=== PATIENT | male | born 1930 | race Caucasian/White ===

== ENCOUNTER 2021-08-28 09:49 | Outpatient (CLI) | payer MEDICARE, BC ==
[2021-08-28] MEDS ORDERED: Iopamidol-370 76% 500 ML 1 ML ONE (10:14)
== END 2021-08-28 09:50 | disposition home or self-care (01) ==
LOC: BICRAD 09:49 → BICCT 09:50
PROVIDERS: ATTEND Allergy & Immunology
DX: J38.3 Other diseases of vocal cords (principal); I31.3 Pericardial effusion (noninflammatory); J90 Pleural effusion, not elsewhere classified; R59.0 Localized enlarged lymph nodes
CPT/HCPCS: 71260; 82565; Q9967